=== PATIENT | male | born 1940 | race Two or more races ===

== ENCOUNTER 2020-07-13 08:57 | Outpatient (CLI) | payer OTHER | END 2020-07-13 09:08 | disposition home or self-care (01) | LOC: TOM 08:57 | PROVIDERS: ATTEND Urology | DX: N20.0 Calculus of kidney (principal); N40.0 Benign prostatic hyperplasia without lower urinary tract symptoms; R31.29 Other microscopic hematuria ==

== ENCOUNTER 2021-06-23 12:40 | Outpatient (CLI) | payer OTHER | END 2021-06-23 12:58 | disposition home or self-care (01) | LOC: SONOGRAMA 12:40 → MAMO-SONO 13:15 | PROVIDERS: ATTEND Urology | DX: N40.0 Benign prostatic hyperplasia without lower urinary tract symptoms (principal); R31.21 Asymptomatic microscopic hematuria; N28.1 Cyst of kidney, acquired ==